=== PATIENT | female | born 1965 | race Two or more races ===

== ENCOUNTER 2019-06-24 00:03 | Emergency (ER) | payer MEDICARE ==
[2019-06-24] MEDS ORDERED: NORMAL SALINE 500 ML IV ONE (00:38)
--- NOTE | 2019-06-24 00:52 | ER Document Report ---
Entered by JOHNY HAMMER SCRIBE 06/24/19 0026 Acting as scribe for:CHAD GALVIN IV, MD ED General - General Chief Complaint: Altered Mental Status Stated Complaint: ALTERED MENTAL STATUS Time Seen by Provider: 06/24/19 00:25 Primary Care Provider: ISA ESTRADA MD [Primary Care Provider] - Follow up as needed Mode of Arrival: Medic Information source: Emergency Med Personnel Notes: This 53 year old female patient brought in by EMS presents to the ED today with complaints of altered mental status that began prior to arrival. ED nurse states that the patient's mom called for EMS because the patient was weak and collapsed with no head injury or loss of consciousness. ED nurse reports that the mom states that the patient took Ambien and Clonazepam at 1999. Patient recently moved here and was prescribed a x3 month supply of Depakote from her PCP to sustain her until she found a new PCP here. Patient has a prescription for x60 1mg Clonazepam that was filled on 06/10/19. Patient only has x8 pills left in the bottle. - Related Data Allergies/Adverse Reactions: No Known Allergies Allergy (Unverified 06/24/19 00:54) Past Medical History - General Information source: Emergency Med Personnel - Social History Smoking Status: Unknown if Ever Smoked Cigarette use (# per day): No Chew tobacco use (# tins/day): No Smoking Education Provided: No Family History: Reviewed & Not Pertinent Review of Systems - Review of Systems Constitutional: See HPI, Weakness EENT: No symptoms reported Cardiovascular: No symptoms reported Respiratory: No symptoms reported Gastrointestinal: No symptoms reported Genitourinary: No symptoms reported Female Genitourinary: No symptoms reported Musculoskeletal: No symptoms reported Skin: No symptoms reported Hematologic/Lymphatic: No symptoms reported Neurological/Psychological: See HPI, Other - Altered mental status. denies: Lost consciousness -: Yes All other systems reviewed and negative Physical Exam - Vital signs Vitals: BP Pulse Ox 117/72 96 06/24/19 00:21 06/24/19 00:21 - General General appearance: Other - Somnolent - HEENT Head: Normocephalic, Atraumatic Eyes: Normal Pupils: PERRL - Respiratory Respiratory status: No respiratory distress Chest status: Nontender Breath sounds: Normal Chest palpation: Normal - Cardiovascular Rhythm: Regular Heart sounds: Normal auscultation Murmur: No - Abdominal Inspection: Normal Distension: No distension Bowel sounds: Normal Tenderness: Nontender - Abdomen soft Organomegaly: No organomegaly - Back Back: Normal, Nontender - Extremities General upper extremity: Normal inspection General lower extremity: Normal inspection - Neurological Neuro grossly intact: Yes - Psychological Associated symptoms: Other - Somnolent - Skin Skin Temperature: Warm Skin Moisture: Dry Skin Color: Normal Course - Vital Signs Vital signs: Temp Pulse Resp BP Pulse Ox 97.4 F 17 119/67 99 06/24/19 00:53 06/24/19 04:01 06/24/19 04:01 06/24/19 04:01 - Laboratory Result Diagrams: 06/24/19 01:15 06/24/19 01:15 Laboratory results interpreted by me: 06/24/19 06/24/19 01:15 01:15 Hgb 11.3 L Hct 33.9 L RDW 16.6 H Eos % (Auto) 10.1 H Calcium 8.3 L Albumin 3.4 L - Diagnostic Test Radiology reviewed: Reports reviewed Discharge - Discharge Clinical Impression: Altered mental status, unspecified Qualifiers: Altered mental status type: unspecified Qualified Code(s): R41.82 - Altered men tiff status, unspecified Condition: Good Disposition: HOME, SELF-CARE Additional Instructions: Return to the Emergency Department without delay if any worse. Altered Mental Status An altered mental status is a change in the normal functioning of the brain. This alteration of function can range from minor decreased brain function with some forgetfulness and confusion to complete loss of consciousness and coma. There are many possible causes of an altered mental status and include brain injuries such as trauma or strokes, problems with oxygen supply to the brain, fever and infections of the brain and/or elsewhere in the body, metabolic abnormalities such as low or high blood sugar, overdoses or excessive medication ingestion, and mental and psychiatric illnesses. Sometimes the altered mental status resolves and a definite cause is not determined. If a cause for your altered mental status was found, it has likely been corrected. Your evaluation has not shown any condition that requires that you be admitted to the hospital. It is believed that you are safe to leave and return to your home. If you have a return of your symptoms, you should return for re-evaluation. HOME CARE INSTRUCTIONS & INFORMATION: Thank you for choosing us for your medical needs. We hope you're satisfied with the care you received. After you leave, you must properly care for your problem and, at the same time, observe its progress. Any condition can change. Some illnesses can change rapidly over hours or days. If your condition worsens, return to the Emergency Department or see your physician promptly. ABOUT YOUR X-RAYS AND EKG'S: If you had an EKG or X-rays taken, they have been read by the Emergency Physician. The X-rays and EKG's will also be read by a Radiologist or Stratigrapher within 24 hours. If discrepancies are noted, you will be notified by telephone. Please be certain the ED has a correct telephone number & address where you can be reached. Also, realize that some fractures or abnormalities do not show up on initial X-rays. If your symptoms continue, see your physician. ABOUT YOUR LABORATORY TEST: If you had laboratory tests, the results have been reviewed by the Emergency Physician. Some test results (for example cultures) may not be available for several days. You will be contacted if any test result shows you need additional treatment. Please be certain the ED has a correct telephone number and address where you can be reached. ABOUT YOUR MEDICATIONS: You will receive instructions on how to take your medicine on the prescription label you receive. Additional information may be provided by the Pharmacy. If you have questions afterwards, call the ED for clarification or further instructions. Some prescribed medications may cause drowsiness. Do not perform tasks such as driving a car or operating machinery without consulting your Pharmacist. If you feel you need a refill of pain medication, your condition will need re-evaluation. Please do not call for a refill of any medication. ABOUT YOUR SIGNATURE: Signature of this document acknowledges to followin. Understanding that you received emergency treatment and that you may be released before al medical problems are known or treated. Please be certain the ED has a correct phone number & address where you can be reached. 2. Acknowledgement that you will arrange for follow-up care as recommended. 3. Authorization for the Emergency Physician to provide information to your follow-up Physician in order to maximize your care. AT ANY TIME, IF YOUR SYMPTOMS CHANGE SIGNIFICANTLY OR WORSEN OR YOU DEVELOP NEW SYMPTOMS, RETURN TO THE EMERGENCY DEPARTMENT IMMEDIATELY FOR RE-EVALUATION. OUR GOAL IS TO PROVIDE EXCELLENT MEDICAL CARE! WE HOPE THAT WE HAVE MET YOUR EXPECTATIONS DURING YOUR EMERGENCY DEPARTMENT VISIT AND THAT YOU FEEL YOU HAVE RECEIVED EXCELLENT CARE! Referrals: ISA ESTRADA MD [Primary Care Provider] - Follow up as needed I personally performed the services described in the documentation, reviewed and edited the documentation which was dictated to the scribe in my presence, and it accurately records my words and actions.
[2019-06-24 01:12] LABS: APPEARANCE,URINE CLEAR; BILIRUBIN,URINE NEGATIVE (NEGATIVE); COLOR,URINE YELLOW; GLUCOSE, URINE NEGATIVE (NEGATIVE); KETONES,URINE NEGATIVE (NEGATIVE); LEUKOCYTE ESTERASE,URINE NEGATIVE (NEGATIVE); NITRITE,URINE NEGATIVE (NEGATIVE); PROTEIN,URINE NEGATIVE (NEGATIVE); URINE SPECIFIC GRAVITY 1.012; UROBILINOGEN,URINE NEGATIVE mg/dL (<2.0)
--- NOTE | 2019-06-24 01:22 | RADIOLOGY REPORT (SQ) ---
EXAM DESCRIPTION: CT HEAD WITHOUT IV CONTRAST COMPLETED DATE/TME: 06/24/2019 00:37 CLINICAL HISTORY: 53 years, Female, ams COMPARISON: None. TECHNIQUE: Images stored on PACS. All CT scanners at this facility use dose modulation, iterative reconstruction, and/or weight based dosing when appropriate to reduce radiation dose to as low as reasonably achievable (ALARA). [facility]: Dose Right [facility]: CareDose [facility]: Dose Right [facility]: Teradose 4D [facility]: [employer] Technologies LIMITATIONS: Asymmetric positioning FINDINGS: Martinez-white differentiation is grossly normal. The ventricles and extracerebral spaces are within normal limits, for age. No evidence of mass lesion, positive mass effect or intracranial hemorrhage. No evidence of an acute large territory infarct. The mastoid air cells are clear. Visualized paranasal sinuses are grossly clear. Orbits and eyeballs are unremarkable. IMPRESSION: No acute intracranial process is identified. The cause of the patient's altered mental status is not identified on this examination. TECHNICAL DOCUMENTATION: Quality ID # [id number]: Final reports with documentation of one or more dose reduction techniques (e.g., Automated exposure control, adjustment of the mA and/or kV according to patient size, use of iterative reconstruction technique) copyright 2011 [employer]- All Rights Reserved
[2019-06-24 01:37] LABS: URINE AMPHETAMINES SCREEN NEGATIVE; URINE BARBITURATES SCREEN NEGATIVE; URINE BENZODIAZEPINES SCREEN NEGATIVE; URINE COCAINE SCREEN NEGATIVE; URINE MARIJUANA (THC) SCREEN NEGATIVE; URINE METHADONE SCREEN NEGATIVE; URINE PHENCYCLIDINE SCREEN NEGATIVE
[2019-06-24 01:51] LABS: ALBUMIN 3.4 g/dL (3.5-5.0); ALKALINE PHOSPHATASE 69 U/L (38-126); ANION GAP 9 (5-19); ASPARTATE AMINO TRANSFERASE 16 U/L (14-36); BILIRUBIN,DIRECT 0.2 mg/dL (0.0-0.4); BILIRUBIN,TOTAL 0.2 mg/dL (0.2-1.3); BLOOD UREA NITROGEN 17 mg/dL (7-20); CALCIUM 8.3 mg/dL (8.4-10.2); CARBON DIOXIDE 25 mmol/L (22-30); CHLORIDE 107 mmol/L (98-107); GLUCOSE 84 mg/dL (75-110); POTASSIUM 4.2 mmol/L (3.6-5.0); TOTAL PROTEIN 6.4 g/dL (6.3-8.2)
[2019-06-24 01:57] LABS: ALCOHOL < 10 mg/dL (NONE DETECTED)
[2019-06-24 02:11] LABS: ABSOLUTE EOSINOPHILS # (AUTO) 0.6 10^3/uL (0.0-0.6); ABSOLUTE LYMPHOCYTES (AUTO) 2.3 10^3/uL (0.5-4.7); ABSOLUTE MONOCYTES (AUTO) 0.5 10^3/uL (0.1-1.4); ABSOLUTE NEUT (AUTO) 2.5 10^3/uL (1.7-8.2); BASOPHILS % (AUTO) 0.4 % (0-2); EOSINOPHILS % (AUTO) 10.1 % (0-6); HEMATOCRIT 33.9 % (36.0-47.0); HEMOGLOBIN 11.3 g/dL (12.0-15.5); LYMPHOCYTES % (AUTO) 38.7 % (13-45); MEAN CORPUSCULAR HEMOGLOBIN 29.4 pg (27.0-33.4); MEAN CORPUSCULAR HGB CONC 33.5 g/dL (32.0-36.0); MEAN CORPUSCULAR VOLUME 88 fl (80-97); MONOCYTES % (AUTO) 7.9 % (3-13); PLATELET COUNT 170 10^3/uL (150-450); RED BLOOD COUNT 3.85 10^6/uL (3.72-5.28); RED CELL DISTRIBUTION WIDTH 16.6 % (11.5-14.0); SEGMENTED NEUTROPHILS % (AUTO) 42.9 % (42-78); TOTAL CELLS COUNTED % (AUTO) 100 %; WHITE BLOOD COUNT 5.8 10^3/uL (4.0-10.5)
[2019-06-24 06:14] VITALS: BP 129/67
--- NOTE | 2019-06-24 08:39 | EKG REPORT ---
SEVERITY:- ABNORMAL ECG - SINUS RHYTHM NONSPECIFIC T ABNORMALITIES, ANTERIOR LEADS BORDERLINE PROLONGED QT INTERVAL : Confirmed by: Tiffany Cooper 24-Jun-2019 08:38:14
== END 2019-06-24 06:14 | disposition home or self-care (01) ==
LOC: ER 00:03
DX: R40.0 Somnolence (principal); R53.1 Weakness
CPT/HCPCS: 93005; 99285; 96360; 36415; 80307 ×2; 85025; 80053; 81001; 80164; 70450; 93010; J7040

== ENCOUNTER 2019-08-25 11:30 | Emergency (ER) | payer MEDICARE, MEDICAID ==
--- NOTE | 2019-08-25 11:54 | ER Document Report ---
HPI - HPI Time Seen by Provider: 08/25/19 11:33 Onset: Last week Onset/Duration: Gradual Quality of pain: Achy Severity: Mild Pain Level: 1 Context: 53-year-old female presented to ED for gross subjective fever with chills body aches sore throat cough shortness of breath nausea headache and abdominal pain. She also has diarrhea and fatigue. She does have a history of asthma chronic fatigue syndrome fibromyalgia and GI issues. She also has multiple psych issues. She is here today for coronavirus testing. The patient was evaluated during the global Covid 19 pandemic, and that diagnosis was suspected/considered upon their initial presentation. Their evaluation, treatment and testing was consistent with current guidelines for patients who present with complaints or symptoms that may be related to Covid 19. Associated Symptoms: Chills - Subjective, Nonproductive cough, Fever, Headache, Nausea - CONSTITUTIONAL Constitutional: REPORTS: Fever, Chills - EENT EENT: REPORTS: Sore Throat - NEURO Neurology: REPORTS: Headache - RESPIRATORY Respiratory: REPORTS: Coughing - GASTROINTESTINAL Gastrointestinal: REPORTS: Abdominal Pain, Nausea - URINARY Urinary: DENIES: Dysuria, Urgency, Frequency - REPRODUCTIVE Reproductive: DENIES: :, Postmenopausal, Abnormal bleeding / discharge - MUSCULOSKELETAL Notes: Body aches - DERM Skin Color: Normal Skin Problems: None Past Medical History - General Information source: Patient - Social History Smoking Status: Never Smoker Family History: Reviewed & Not Pertinent - Past Medical History Cardiac Medical History: Reports: None Pulmonary Medical History: Reports: Hx Asthma EENT Medical History: Reports: None Neurological Medical History: Reports: None Endocrine Medical History: Reports: None Renal/ Medical History: Reports: None Malignancy Medical History: Reports: None GI Medical History: Reports: Other - GI issues Musculoskeletal Medical History: Reports Hx Fibromyalgia, Reports Other - Chronic fatigue syndrome Psychiatric Medical History: Reports: Hx Anxiety, Hx Bipolar Disorder, Hx Borderline Personality Disorder, Hx Depression Traumatic Medical History: Reports: None Infectious Medical History: Reports: None Vertical Provider Document - CONSTITUTIONAL Notes: PHYSICAL EXAMINATION: GENERAL: Well-appearing, well-nourished and in no acute distress. HEAD: Atraumatic, normocephalic. EYES: Pupils equal round extraocular movements intact, conjunctiva are normal. ENT: Nasal drainage with postnasal drip no redness or enlargement tonsils no exudate NECK: Normal range of motion LUNGS: No respiratory distress Musculoskeletal: Normal range of motion NEUROLOGICAL: Normal speech, normal gait. PSYCH: Normal mood, normal affect. SKIN: Warm, Dry, normal turgor, no rashes or lesions noted. Course - Re-evaluation Re-evalutation: 08/25/19 12:26 Patient presents with upper respiratory symptoms worrisome for possible Covid 19. Patient does not have emergency worring symptoms such as difficulty breathing, shortness of breath, chest pain, pressure, confusion or cyanosis. Patient appears suitable for discharge. Good return precautions have been discussed with patient, patient verbalized understanding and is agreeable with discharge plan of care at this time. 08/25/19 12:54 Patient notified of Negative results for Rapid Flu (A & B) and Rapid Strep. Patient also advised of PENDING results for Throat Culture and COVID- 19. Discharge - Discharge Clinical Impression: Viral respiratory illness, Covid 19 screening Condition: Stable Disposition: HOME, SELF-CARE Additional Instructions: Patient was provided with discharge information including: As a person under investigation for Covid 19, the [place] department of Health and Human Services, division of public health advises you to adhere to the following guidance until your test results are reported to you. If your test result is positive, you will receive additional information from your provider and your local health department at that time. Remain at home until you are cleared by the health provider or public health authorities. Keep a log of visitors to your home, notify any visitors to your home of your isolation status. If you plan to move to a new address or leave the [facility], notify the local health department in your County. Call your doctor or seek care if you have an urgent medical need. Before seeking medical care, call ahead to get instructions from the provider before arriving at the medical office clinic or hospital. Notify them that you are being tested for the virus that causes Covid 19 so that arrangements can be made, as necessary, to prevent transmission to others in the healthcare setting. Next, notify the local health department in your county. If a medical emergency arises and you need to call 911, inform the first responders that you are being tested for the virus that causes Covid 19. Next, notify the local health department in your county. Referrals: ISA ESTRADA MD [Primary Care Provider] - Follow up as needed
[2019-08-25 12:36] VITALS: BP 118/63
[2019-08-25 12:50] LABS: A TYPE INFLUENZA AG NEGATIVE (NEGATIVE); B INFLUENZA AG NEGATIVE (NEGATIVE)
== END 2019-08-25 13:22 | disposition home or self-care (01) ==
LOC: EDRDC 11:30
DX: Z20.828 Contact with and (suspected) exposure to other viral communicable diseases (principal); B34.9 Viral infection, unspecified; R68.89 Other general symptoms and signs; R50.9 Fever, unspecified; R05 Cough; R06.02 Shortness of breath; R11.0 Nausea
CPT/HCPCS: 87070; 87880; 87804; U0003; G0463; 87635; 99211

== ENCOUNTER 2019-09-22 10:30 | Emergency (ER) | payer MEDICARE, MEDICAID ==
[2019-09-22 10:43] VITALS: BP 135/55
[2019-09-22] MEDS ORDERED: LIDOCAINE 1% INJ-PF (10 MG/ML) 30 ML SDV INJ ONE (10:52)
--- NOTE | 2019-09-22 10:58 | ER Document Report ---
ED Hand/Wrist Injury - General Chief Complaint: Laceration Stated Complaint: FINGER LACERATION Time Seen by Provider: 09/22/19 10:51 Primary Care Provider: ISA ESTRADA MD [NO LOCAL MD] - Follow up as needed Mode of Arrival: Ambulatory Information source: Patient Notes: 53-year-old female presented to ED for call complaint of a laceration to the left middle finger. It is about three-quarter centimeter long. She states she was cutting salami last night about 930 when she cut her finger. She states she could not get it to stop bleeding so she came to the emergency room because no one else would see her. She is alert oriented respirations regular nonlabored speaking in full sentences. She states she does need a tetanus shot because she does not know when her last shot was. - HPI Injury to: Middle finger Onset: Yesterday Where: Home, Indoors Timing: Still present Quality of pain: Sharp - Related Data Allergies/Adverse Reactions: No Known Allergies Allergy (Verified 09/22/19 10:49) Past Medical History - General Information source: Patient - Social History Smoking Status: Never Smoker Chew tobacco use (# tins/day): No Frequency of alcohol use: None Drug Abuse: None Family History: Reviewed & Not Pertinent Patient has homicidal ideation: No Pulmonary Medical History: Reports: Hx Asthma GI Medical History: Reports: Hx Gastritis, Hx Gastroesophageal Reflux Disease, Hx Ulcer, Hx Endoscopy Musculoskeletal Medical History: Reports Hx Fibromyalgia Psychiatric Medical History: Reports: Hx Anxiety, Hx Bipolar Disorder, Hx Borderline Personality Disorder, Hx Depression Traumatic Medical History: Reports: Hx Fractures - Multiple Past Surgical History: Reports: Hx Appendectomy, Hx Section, Hx Cholecystectomy, Hx Dilation and Curettage, Hx Gastric Bypass Surgery, Hx Hyst erectomy, Hx Tonsillectomy - Immunizations Immunizations up to date: Yes Hx Diphtheria, Pertussis, Tetanus Vaccination: Yes - 09/22/2019 Review of Systems - Review of Systems Constitutional: No symptoms reported EENT: No symptoms reported Cardiovascular: No symptoms reported Respiratory: No symptoms reported Gastrointestinal: No symptoms reported Genitourinary: No symptoms reported Female Genitourinary: No symptoms reported Musculoskeletal: No symptoms reported Skin: Other - Laceration three-quarter centimeter to the middle finger near the nail Hematologic/Lymphatic: No symptoms reported Neurological/Psychological: No symptoms reported Physical Exam - Vital signs Vitals: Temp Pulse Resp BP Pulse Ox 98.7 F 78 18 135/55 H 96 09/22/19 10:36 09/22/19 10:36 09/22/19 10:36 09/22/19 10:36 09/22/19 10:36 Interpretation: Hypertensive - General General appearance: Appears well, Alert In distress: None - Extremities General upper extremity: Normal color, Normal ROM, Normal temperature General lower extremity: Normal inspection, Nontender, Normal color, Normal ROM, Normal temperature, Normal weight bearing. No: George's sign Hand: Tender, Laceration - Three-quarter centimeter laceration close to the nail of the middle finger on the left hand, Swelling - Skin Skin Temperature: Warm Skin Moisture: Dry Skin Color: Normal Skin irregularity: Laceration Location of irregularity: Extremities - Left middle finger three-quarter inches long Course - Vital Signs Vital signs: Temp Pulse Resp BP Pulse Ox 98.7 F 78 18 135/55 H 96 09/22/19 11:45 09/22/19 11:45 09/22/19 11:45 09/22/19 11:45 09/22/19 11:45 Procedures - Laceration/Wound Repair Left Finger 3rd digit Time completed: 11:30 Wound length (cm): 0.7 Wound's Depth, Shape: Superficial, Linear Laceration pre-procedure: Sterile PPE donned, Sterile drapes applied, Shur-Clens applied Anesthetic type: 1% Lidocaine Volume Anesthetic (mLs): 5 Wound explored: Contaminated Irrigated w/ Saline (mLs): 300 Wound Repaired With: Sutures Suture Size/Type: 4:0, Ethilon Number of Sutures: 3 Discharge - Discharge Clinical Impression: Laceration of left middle finger Qualifiers: Encounter type: initial encounter Damage to nail status: without damage Foreign body presence: without foreign body Qualified Code(s): S61.213A - Laceration without foreign body of left middle finger without damage to nail, initial encounter Condition: Stable Disposition: HOME, SELF-CARE Additional Instructions: LACERATION CARE: Your laceration has been sutured to keep the skin edges aligned during healing. The time of suture removal depends on the nature and location of your cut. Please follow the care instructions the doctor has outlined for you and return for further care, according to the schedule you've been given. Keep the wound and dressing clean. Unless you were told otherwise, you may shower daily, blotting the wound dry with a clean, unused towel. At other times, If the dressing gets wet or blood soaked, remove it and blot the wound dry, then reapply a new dressing. Unless you were instructed otherwise, dressings should be changed at least daily. If any signs of infection occur (swelling, redness, drainage, increasing tenderness, red streaks, tender lumps in the armpit or groin above the laceration, or fever), see the doctor immediately. SOAP CLEANSING: Gently wash the wound daily using a mild soap (like Ivory, Phisoderm, Neutrogena). Use warm water, rubbing gently until all debris, ooze, and crusting have been washed from the wound. Allow to dry briefly (about 10 minutes) after cleaning. Repeat this cleansing at least three times a day for the first two days and then once or twice a day. ANTIBIOTIC OINTMENT PROTECTION: Your wounds are such that dressing them is not practical or optional. After cleansing, you should apply a thin coating of antibiotic ointment (Bacitracin, not Neosporin) to the wounds at least three times daily. This les sens infection risk, and may decrease the amount of scarring. Use a q-tip or dull butter knife, not your finger, to apply this ointment. Any debris or ooze which builds up in the ointment should be gently rubbed off with a sterile gauze pad. Harder crusting may need to be gently scrubbed off with a clean wash cloth with soap and warm water, perhaps applying a warm, wet wash cloth to the wound for ten minutes first. Development of redness, severe itching, or blistering may mean allergy to the ointment. See the doctor. TETANUS IMMUNIZATION GIVEN: You have been given an immunization against tetanus. Please record this in your records. In general, a booster is needed only once every 10 years. The tetanus shot protects against tetanus or "lockjaw," which is a complication of certain wound infections (the tetanus shot cannot protect against the actual infection). The immunization site may become warm and red due to local reaction. If this occurs, apply warm compresses and take aspirin or ibuprofen to reduce inflammation and discomfort. Return for evaluation if the reaction becomes severe. PROPHYLACTIC ANTIBIOTIC: The antibiotics which have been prescribed are designed to decrease the risk of infection. Only certain types of wounds benefit from this -- the typical cut, scrape, or burn DOES NOT require antibiotics. Of course, infection can still occur despite the use of prophylactic antibiotics. Your wound will heal with less chance of an infectious complication if you take the medication as directed. The most important dose is the FIRST dose, so don't delay filling the prescription! Splint Precautions A splint has been placed. This will protect the area while healing begins. Your problem does NOT normally require a cast. It MUST, however, be held still! Keep the splint on ALL THE TIME until instructed to remove it by the doctor. As you begin to use the area, be careful. You shouldn't do anything which causes discomfort -- you may disturb the injury even with the splint in place. After the initial period of rest and elevation, if splint does not prevent pain when you move, come back. You may require placement of a different splint, or a cast. If there is unexpected severe pain, or numbness, discoloration, or swelling beyond the splint, you should return at once. If you feel that the splint has broken or become loose, come back. FOLLOW-UP CARE: Please return in __3___ days for an infection check and dressing change. Your sutures should be removed in ___10__ days. To facilitate a timely removal of your sutures, you may return to the Emergency Department at [facility]. You do not need to call for an appointment, but the best time to come in for suture removal is early in the morning. If you have been referred to another physician for follow-up care, call that physicians office for an appointment as you were instructed. If you experience a significant change in your laceration, or if you are concerned there may be an infection (swelling, redness, drainage, increasing tenderness, red streaks, tender lumps in the armpit or groin above the laceration, or fever), return to the Emergency Department immediately re-evaluation. Prescriptions: Cephalexin Monohydrate [Keflex 500 mg Capsule] 500 mg PO Q6H 5 Days #20 capsule Forms: Elevated Blood Pressure Referrals: ISA ESTRADA MD [NO LOCAL MD] - Follow up as needed
[2019-09-22] MEDS ORDERED: DIPH/PERTUSS(ACELL)/TETANUS VAC/PF 0.5 ML SYR (>=10YO) IM ONE (11:30)
== END 2019-09-22 11:45 | disposition home or self-care (01) ==
LOC: ER 10:30
DX: S61.213A Laceration without foreign body of left middle finger without damage to nail, initial encounter (principal); W45.8XXA Other foreign body or object entering through skin, initial encounter; Y93.G9 Activity, other involving cooking and grilling; Y92.009 Unspecified place in unspecified non-institutional (private) residence as the place of occurrence of the external cause; Z23 Encounter for immunization; J45.909 Unspecified asthma, uncomplicated; Z98.84 Bariatric surgery status
CPT/HCPCS: 99282; 90471; 90715; 12001; J3490

== ENCOUNTER 2019-09-26 18:17 | Emergency (ER) | payer MEDICARE, MEDICAID ==
[2019-09-26 18:22] VITALS: BP 136/80
[2019-09-26] MEDS ORDERED: ACETAMINOPHEN 325 MG TABLET PO ONE (18:45)
--- NOTE | 2019-09-26 18:50 | ER Document Report ---
ED Medical Screen (RME) - General Chief Complaint: Fall Injury Stated Complaint: FALL/RIGHT ARM PAIN, KNEE PAIN Time Seen by Provider: 09/26/19 18:32 Primary Care Provider: ANOOP ESTRADA MD [Primary Care Provider] - Follow up as needed - [facility] Notes: 09/26/19 18:46 53-year-old female presents emergency room for complaints right upper and lower arm pain after falling accidentally approximately 12 hours ago after she tripped over her feet. Denies head trauma or change in level consciousness. Witnessed event. Patient reports weakness in her arm, severe pain unable to move arm. Has not tried any [id number] medications, no ice or heat. Patient states pain is 9 out of 10, does not want any controlled substances because she states she has drive herself home. Denies any other area of injury. Denies pain in her shoulder states her pain is from her upper arm down. Worse with movement, better with immobilization. Denies prior history of fracturing anything in her right arm. Denies any fevers, chills I have greeted and performed a rapid initial assessment of this patient. A comprehensive ED assessment and evaluation of the patient, analysis of test results and completion of the medical decision making process will be conducted by additional ED providers. PHYSICAL EXAMINATION: GENERAL: Well-appearing, well-nourished and in no acute distress. CV: s1, s2 regular LUNGS: No respiratory distress Musculoskeletal: Normal range of motion. Right elbow with pain with palpation unable to supinate, pronate, extension. only able to keep in flexed position. Swelling of right elbow and right forearm with some ecchymosis. Positive snuffbox sign on right. Pain with palpation to distal humerus. Noted swelling of fingers. - Related Data Allergies/Adverse Reactions: No Known Allergies Allergy (Verified 09/22/19 10:49) Past Medical History - Social History Frequency of alcohol use: None Drug Abuse: None Pulmonary Medical History: Reports: Hx Asthma GI Medical History: Reports: Hx Gastritis, Hx Gastroesophageal Reflux Disease, Hx Ulcer, Hx Endoscopy Musculoskeltal Medical History: Reports Hx Fibromyalgia Psychiatric Medical History: Reports: Hx Anxiety, Hx Bipolar Disorder, Hx Borderline Personality Disorder, Hx Depression Traumatic Medical History: Reports: Hx Fractures - Multiple Past Surgical History: Reports: Hx Appendectomy, Hx Section, Hx Cholecystectomy, Hx Dilation and Curettage, Hx Gastric Bypass Surgery, Hx Hysterectomy, Hx Tonsillectomy - Immunizations Immunizations up to date: Yes Hx Diphtheria, Pertussis, Tetanus Vaccination: Yes - 09/22/2019 Physical Exam - Vital signs Vitals: Temp Pulse Resp BP Pulse Ox 98.9 F 93 16 136/80 H 96 09/26/19 18:21 09/26/19 18:21 09/26/19 18:21 09/26/19 18:21 09/26/19 18:21 Course - Vital Signs Vital signs: Temp Pulse Resp BP Pulse Ox 98.9 F 93 16 136/80 H 96 09/26/19 18:29 09/26/19 18:21 09/26/19 18:21 09/26/19 18:21 09/26/19 18:21 Doctor's Discharge - Discharge Referrals: ANOOP ESTRADA MD [Primary Care Provider] - Follow up as needed
--- NOTE | 2019-09-26 20:02 | RADIOLOGY REPORT (SQ) ---
CLINICAL INDICATION: s/p fall right arm pain. . TECHNIQUE: 2 view(s) were obtained of the right forearm. COMPARISON: None. FINDINGS: Acute radial head fracture, incompletely seen. Alignment appears anatomic. Elbow effusion. Osteoarthritis. Deformity from old injury distal radius.. If wrist or elbow are clinically in suspicion, then dedicated radiography is advised. IMPRESSION: Impacted radial head fracture. Dedicated elbow imaging is advised.
--- NOTE | 2019-09-26 20:02 | RADIOLOGY REPORT (SQ) ---
CLINICAL INDICATION: s/p fall, R arm pain. . TECHNIQUE: 4 view(s) were obtained of the right elbow. COMPARISON: None. FINDINGS: Acute impacted radial head fracture. There appears be disruption of the articular surface seen on one view only.. No other acute bony injury. Osteoarthritis. Large joint effusion. Surrounding soft tissues are unremarkable. IMPRESSION: Impacted radial head fracture.
--- NOTE | 2019-09-26 20:03 | RADIOLOGY REPORT (SQ) ---
CLINICAL INDICATION: s/p fall, right wrist pain . . TECHNIQUE: 2 view(s) were obtained of the right wrist. COMPARISON: None. FINDINGS: No acute displaced fracture is identified of the wrist. Alignment appears anatomic. Osteoarthritis. Deformity from old injury.. Surrounding soft tissues are unremarkable. IMPRESSION: No evidence of acute displaced fracture of the wrist.
--- NOTE | 2019-09-26 20:03 | RADIOLOGY REPORT (SQ) ---
CLINICAL INDICATION: s/p fall, R arm pain. . TECHNIQUE: 2 view(s) were obtained of the right humerus. COMPARISON: None. FINDINGS: No acute displaced fracture is identified of the humerus. Alignment appears anatomic. Joint spaces are within normal limits for age. Surrounding soft tissues are unremarkable. If shoulder or elbow are clinically in suspicion, then dedicated radiography is advised. IMPRESSION: No evidence of acute displaced fracture of the humerus. Please see report of elbow
[2019-09-26] MEDS ORDERED: HYDROCODONE/ACETAMINOPHEN 5-325 MG (6 TAB/ER DISP) PO PRN (20:10)
--- NOTE | 2019-09-26 20:24 | ER Document Report ---
HPI - HPI Time Seen by Provider: 09/26/19 18:32 Pain Level: 5 Notes: tripped over her feet. Denies head trauma or change in level consciousness. Witnessed event. Patient reports weakness in her arm, severe pain unable to move arm. Has not tried any aylr-shr-[id number] medications, no ice or heat. Patient states pain is 9 out of 10, does not want any controlled substances because she states she has drive herself home. Denies any other area of injury. Denies pain in her shoulder states her pain is from her upper arm down. Worse with movement, better with immobilization. Denies prior history of fracturing anything in her right arm. Denies fevers, chills, chest pain,palpitations, shortness of breath, dyspnea, nausea, vomiting, diarrhea, abdominal pain, hematuria,blurred vision, double vision, loss of vision, speech changes, LH, dizziness, syncope, headaches, wheezing, ST, URI, neck pain, weakness, bowel or bladder dysfunction, saddle anesthesia, numbness or tingling in bilateral upper or lower extremities equally, muscle paralysis, weakness in bilateral upper or lower extremities equally or rash. - REPRODUCTIVE Reproductive: DENIES: : Past Medical History - General Information source: Patient - Social History Smoking Status: Never Smoker Frequency of alcohol use: None Drug Abuse: None Family History: Reviewed & Not Pertinent Patient has homicidal ideation: No Pulmonary Medical History: Reports: Hx Asthma GI Medical History: Reports: Hx Gastritis, Hx Gastroesophageal Reflux Disease, Hx Ulcer, Hx Endoscopy Musculoskeletal Medical History: Reports Hx Fibromyalgia Psychiatric Medical History: Reports: Hx Anxiety, Hx Bipolar Disorder, Hx Borderline Personality Disorder, Hx Depression Traumatic Medical History: Reports: Hx Fractures - Multiple Past Surgical History: Reports: Hx Appendectomy, Hx Section, Hx Cholecystectomy, Hx Dilation and Curettage, Hx Gastric Bypass Surgery, Hx Hysterectomy, Hx Tonsillectomy - Immunizations Immunizations up to date: Yes Hx Diphtheria, Pertussis, Tetanus Vaccination: Yes - 09/22/2019 Vertical Provider Document - CONSTITUTIONAL Agree With Documented VS: Yes Exam Limitations: No Limitations General Appearance: WD/WN Notes: PHYSICAL EXAMINATION: reviewed vital signs by RN GENERAL: Well-appearing, well-nourished and in no acute distress. HEAD: Atraumatic, normocephalic. EYES: Pupils equal round and reactive to light, extraocular movements intact, conjunctiva are normal. ENT: Nares patent, oropharynx clear without exudates. Moist mucous membranes. NECK: Normal range of motion, supple without lymphadenopathy LUNGS: Breath sounds clear to auscultation bilaterally and equal. No wheezes rales or rhonchi. HEART: Regular rate and rhythm without murmurs ABDOMEN: Soft, nontender, nondistended abdomen. No guarding, no rebound. No masses appreciated. Female : deferred Musculoskeletal: Normal range of motion, no pitting or edema. No cyanosis. right elbow with pain with abduction, adduction, extension and flexion. unable to supinate or pronate. Staff Nuclear Weapons Officer + 2 L>R APROM in shoulder. DTR +2 in BUE equally. Noted crepitus with APROM in elbow. Noted noted swelling. No abrasions, ecchymosis, lacerations, scars of recent trauma. No erythema or induration noted to area. Intact median, ulnar and radial nerves bilaterally and equally. muscle strength 5/5 bilaterally. Noted right wrist pain with flexion, extension, inversion, eversion of wrist. digits in right and left with full aprom.. Staff Nuclear Weapons Officer + 2 BUE equally. Snuffbox tenderness positive on right. radial pulses + 2 BUE equally. Negative kanavels sign. No open wounds or drainage from wrist. No vascular compromise.No body crepitus or focal area of TTP. Limited ROM with flexion, extension, ulnar/radial deviation . Motor and sensory function of ulnar, radial, medial nerves intact bilaterally and equally. NEUROLOGICAL: Cranial nerves grossly intact. Normal speech, normal gait. Normal sensory, motor exams PSYCH: Normal mood, normal affect. SKIN: Warm, Dry, normal turgor, no rashes or lesions noted. Course - Re-evaluation Re-evalutation: 09/26/19 20:13 Afebrile vital stable no distress. Nurses notes reviewed. X-ray shows an impacted radial head fracture of the elbow all other images are negative. No focal neurological musculoskeletal deficit noted on examination. contacted Dr. Devaughn Zendejas, weatherization specialist insulation board coater operator at 2014, who recommended a direct posterior elbow splint with the elbow being at 90 degrees and he will see her in the office tomorrow morning. Consent by patient given to place long posterior arm splint with elbow at 90 degree splint,. cms intact, sensory motor function intact in bilateral upper extremities prior to splint application fiberglass splint placed without incident. cms intact 20 minutes after splint application. Splint is in good alignment. Bilateral upper extremities with motor and sensory function intact 20 minutes after application. Pt stated that splint felt comfortable. Discussed with patient that she cannot drive, drink or operate machinery while taking narcotics and cause sedation or impairment of cognitive function. Discussed compartment syndrome at length. After performing a Medical Screening Examination, I estimate there is LOW risk for OPEN FRACTURE, COMPARTMENT SYNDROME, DEEP VENOUS THROMBOSIS, ACUTE TENDON RUPTURE, or NEUROVASCULAR INJURY thus I consider the discharge disposition reasonable. I have reevaluated this patient multiple times and no significant life threatening changes are noted. The patient and I have discussed the diagnosis and risks, and we agree with discharging home to closely follow-up with their primary doctor or the referral orthopedist with the understanding that symptoms and presentations can change. We also discussed returning to the Emergency Department immediately if new or worsening symptoms occur. We have discussed the symptoms which are most concerning (e.g., changing or worsening pain, numbness, weakness) that necessitate immediate return 09/26/19 20:24 - Vital Signs Vital signs: Temp Pulse Resp BP Pulse Ox 98.9 F 93 16 136/80 H 96 09/26/19 18:29 09/26/19 18:21 09/26/19 18:21 09/26/19 18:21 09/26/19 18:21 Discharge - Discharge Clinical Impression: Impacted radial head fracture Condition: Stable Disposition: HOME, SELF-CARE Instructions: Splint Pending Casting ([facility]), Splint Precautions ([facility]), Temporary Splint ([facility]), Compartment Syndrome Cautions ([facility]), Oral Narcotic Medication ([facility]), Sling to be Used ([facility]), Temporary Sling ([facility]) Additional Instructions: Please do not get your splint wet. We discussed at length compartment syndrome. Fully please follow-up with Dr. Zendejas first thing in the morning by calling his office to make an appointment for tomorrow. Please do not drive, drink or operate machinery while taking narcotics and cause sedation or impairment of cognitive function. Use your sling to take the weight of the splint off of your neck. If pain becomes severe, numbness or tingling of your hand, discoloration of your fingers, unable to move your fingers etc. please return to the emergency room immediately. Return immediately for any new or worsening symptoms. Follow up with primary care provider, call tomorrow to make followup appointment. Referrals: ANOOP ESTRADA MD [Primary Care Provider] - Follow up as needed ZACKARY ZENDEJAS JR, [ACTIVE PROVISIONAL STAFF] - Follow up tomorrow (call first thing in the morning to make an appointment )
== END 2019-09-26 21:26 | disposition home or self-care (01) ==
LOC: ER 18:17
DX: S52.121A Displaced fracture of head of right radius, initial encounter for closed fracture (principal); M25.521 Pain in right elbow; W01.0XXA Fall on same level from slipping, tripping and stumbling without subsequent striking against object, initial encounter; J45.909 Unspecified asthma, uncomplicated; Z98.84 Bariatric surgery status
CPT/HCPCS: 99283; 73080; 73090; 73060; 73100; 29105; A9270 ×2

== ENCOUNTER 2019-09-27 16:48 | Emergency (ER) | payer MEDICARE, MEDICAID ==
[2019-09-27 16:55] VITALS: BP 113/74
--- NOTE | 2019-09-27 17:10 | ER Document Report ---
ED Medical Screen (RME) - General Stated Complaint: ARM PAIN Time Seen by Provider: 09/27/19 17:01 Primary Care Provider: ANOOP ESTRADA MD [Primary Care Provider] - Follow up as needed Mode of Arrival: Ambulatory Information source: Patient Notes: Patient returns today with history of impacted radial head yesterday. She was treated with a splint and [place]. She was to follow-up with Dr. Laurent today. She reports she called the office and they did not accept her insurance. She tried to call her primary care provider without success. She is here because she is hurting. I contacted Dr. Laurent and he is going to come see her in the emergency department. Charge nurse notified. I have greeted and performed a rapid initial assessment of this patient. A comprehensive ED assessment and evaluation of the patient, analysis of test results and completion of the medical decision making process will be conducted by additional ED providers. - Related Data Allergies/Adverse Reactions: No Known Allergies Allergy (Verified 09/22/19 10:49) Past Medical History Pulmonary Medical History: Reports: Hx Asthma GI Medical History: Reports: Hx Gastritis, Hx Gastroesophageal Reflux Disease, Hx Ulcer, Hx Endoscopy Musculoskeltal Medical History: Reports Hx Fibromyalgia Psychiatric Medical History: Reports: Hx Anxiety, Hx Bipolar Disorder, Hx Borderline Personality Disorder, Hx Depression Traumatic Medical History: Reports: Hx Fractures - Multiple Past Surgical History: Reports: Hx Appendectomy, Hx Section, Hx Cholecystectomy, Hx Dilation and Curettage, Hx Gastric Bypass Surgery, Hx Hysterectomy, Hx Tonsillectomy - Immunizations Immunizations up to date: Yes Hx Diphtheria, Pertussis, Tetanus Vaccination: Yes - 09/22/2019 Physical Exam - Vital signs Vitals: Temp Pulse Resp BP Pulse Ox 98.6 F 86 14 113/74 99 09/27/19 16:53 09/27/19 16:53 09/27/19 16:53 09/27/19 16:53 09/27/19 16:53 Course - Vital Signs Vital signs: Temp Pulse Resp BP Pulse Ox 98.6 F 86 14 113/74 99 09/27/19 16:53 09/27/19 16:53 09/27/19 16:53 09/27/19 16:53 09/27/19 16:53 Doctor's Discharge - Discharge Referrals: ANOOP ESTRADA MD [Primary Care Provider] - Follow up as needed
--- NOTE | 2019-09-27 22:16 | PDOC CONSULTATION ---
Consultation Consult Date: 09/27/19 Provider Consulted: ZACKARY ZENDEJAS JR History of Present Illness Admission Date/PCP: ISA ESTRADA MD History of Present Illness: ROULA WALTON is a 53 year old female who presents today with right upper extremity pain after a recent fall. She presented last night and was encouraged to follow in my clinic today but I was called and notified that she had presented to the emergency department again for follow up. She reports right upper extremity pain from the shoulder to the hand from a recent fall. She has recognized in the interval that she also has a scrape on her left knee, and pain in her neck as well, mild and not her major concern in relation to her right upper extremity. She denies any loss of consciousness or head trauma. Pain is described as 9/10, aching. Worse with motion and improved with rest. Somewhat improved from her time in the splint since her visit yesterday. Past Medical History Pulmonary Medical History: Reports: Asthma GI Medical History: Reports: Gastroesophageal Reflux Disease Musculoskeltal Medical History: Reports: Fibromyalgia Psychiatric Medical History: Reports: Bipolar Disorder, Depression Past Surgical History Past Surgical History: Reports: Appendectomy, Section, Cholecystectomy, Gastric Bypass Surgery, Hysterectomy, Tonsillectomy Social History Smoking Status: Never Smoker Family History Family History: Reviewed & Not Pertinent Parental Family History Reviewed: No Children Family History Reviewed: NA Sibling(s) Family History Reviewed.: NA Medication/Allergy Home Medications: Cephalexin Monohydrate [Keflex 500 mg Capsule] 500 mg PO Q6H 5 Days #20 capsule 09/22/19 Oxycodone HCl/Acetaminophen [Percocet 5-325 mg Tablet] 1 tab PO BIDP PRN #10 tablet 09/27/19 Allergies/Adverse Reactions: No Known Allergies Allergy (Verified 09/22/19 10:49) Review of Systems Review of Systems: Constitutional: ABSENT: anorexia, chills, night sweats Cardiovascular: ABSENT: chest pain Respiratory: ABSENT: dyspnea Gastrointestinal: ABSENT: vomiting Genitourinary: ABSENT: dysuria Integumentary: ABSENT: rash Neurological: ABSENT: confusion, memory loss, numbness Psychiatric: ABSENT: hallucinations Hematologic/Lymphatic: ABSENT: easy bleeding Physical Exam Vital Signs: Temp Pulse Resp BP Pulse Ox 98.6 F 86 14 113/74 99 09/27/19 17:00 09/27/19 16:53 09/27/19 16:53 09/27/19 16:53 09/27/19 16:53 Intake & Output 09/26/19 09/27/19 09/28/19 06:59 06:59 06:59 Weight 84.3 kg Physical Exam: General appearance: PRESENT: no acute distress, cooperative, well-nourished Head exam: PRESENT: atraumatic, normocephalic Eye exam: PRESENT: EOMI Ear exam: PRESENT: normal external ear exam Mouth exam: PRESENT: neck supple Neck exam: ABSENT: tracheal deviation Respiratory exam: PRESENT: symmetrical, unlabored. ABSENT: accessory muscle use, wheezes Pulses: PRESENT: normal radial pulses, normal dorsalis pedis pulse Vascular exam: PRESENT: normal capillary refill GI/Abdominal exam: ABSENT: distended, firm Musculoskeletal exam: PRESENT: full ROM, normal inspection of all 4 extremities aside from that noted below. Neurological exam: PRESENT: alert, awake, oriented to person, oriented to place, oriented to time Psychiatric exam: PRESENT: appropriate affect. ABSENT: agitated Focused psych exam: ABSENT: catatonic Skin exam: PRESENT: intact. ABSENT: dry All as above aside from that noted in the HPI and the following: Right upper extremity Elbow without overt swelling or skin injury, no ecchymosis Limited ROM due to pain Pain with ROM of supination and pronation Sensation and motor function grossly intact to RUE Pulses 2+ The patients tenderness is out of proportion, patient has anticipatory pain prior to palpation. Right shoulder normal ROM, no pain to ROM, no TTP Mild TTP to cervical spine, ROM full without pain. Assessment & Plan - Diagnosis (1) Radial head fracture Plan: Non-displaced compression fracture of the radial neck. The patient was taken out of her splint. She may continue sling use per comfort. ROM as tolerated Non-weight bearing RUE Follow in my office in 3 weeks and will consider progression of activity and weight bearing at that time. Pain medication per ED Patient may call earlier and present to my office with any acute changes or concerns
--- NOTE | 2019-09-28 00:45 | ER Document Report ---
Entered by THERESE KUMAR SCRIBE 09/27/19 1747 Acting as scribe for:CHLOE LYLES DO ED Extremity Problem, Upper - General Chief Complaint: Arm Pain Stated Complaint: ARM PAIN Time Seen by Provider: 09/27/19 17:01 Primary Care Provider: ANOOP ESTRADA MD [ACTIVE STAFF] - Follow up as needed ZACKARY LAURENT JR, DO [ACTIVE PROVISIONAL STAFF] - 10/16/19 Mode of Arrival: Ambulatory Information source: Patient Notes: This 53 year old female patient presents to the emergency department today with complaints of continued right upper extremity pain resulting from a fall yesterday. Patient was seen here and evaluated in this emergency department last night and was found to have an impacted radial head fracture and was given ortho followup. Patient was told to follow-up with Dr. Laurent's office today but there was an issue with her insurance, so she was told to come to the emergency department for pain relief if she thought it warranted it. Patient denies any new or different symptoms, just continued right arm pain. Patient denies any numbness, tingling, or loss of sensation in her fingers. - Related Data Allergies/Adverse Reactions: No Known Allergies Allergy (Verified 09/22/19 10:49) Past Medical History - General Information source: Patient - Social History Smoking Status: Never Smoker Cigarette use (# per day): No Frequency of alcohol use: None Drug Abuse: None Lives with: Family Family History: Reviewed & Not Pertinent Patient has homicidal ideation: No Pulmonary Medical History: Reports: Hx Asthma GI Medical History: Reports: Hx Gastritis, Hx Gastroesophageal Reflux Disease, Hx Ulcer, Hx Endoscopy Musculoskeletal Medical History: Reports Hx Fibromyalgia Psychiatric Medical History: Reports: Hx Anxiety, Hx Bipolar Disorder, Hx Borderline Personality Disorder, Hx Depression Traumatic Medical History: Reports: Hx Fractures - Multiple Past Surgical History: Reports: Hx Appendectomy, Hx Section, Hx Cholecystectomy, Hx Dilation and Curettage, Hx Gastric Bypass Surgery, Hx Hysterectomy, Hx Tonsillectomy - Immunizations Immunizations up to date: Yes Hx Diphtheria, Pertussis, Tetanus Vaccination: Yes - 09/22/2019 Review of Systems - Review of Systems Constitutional: No symptoms reported EENT: No symptoms reported Cardiovascular: No symptoms reported Respiratory: No symptoms reported Gastrointestinal: No symptoms reported Genitourinary: No symptoms reported Female Genitourinary: No symptoms reported Musculoskeletal: See HPI, Joint pain - RUE pain Skin: No symptoms reported Hematologic/Lymphatic: No symptoms reported Neurological/Psychological: No symptoms reported -: Yes All other systems reviewed and negative Physical Exam - Vital signs Vitals: Temp Pulse Resp BP Pulse Ox 98.6 F 86 14 113/74 99 09/27/19 16:53 09/27/19 16:53 09/27/19 16:53 09/27/19 16:53 09/27/19 16:53 Interpretation: Normal - General General appearance: Appears well, Alert In distress: None - Appears uncomfortable - HEENT Head: Normocephalic, Atraumatic Eyes: Normal Pupils: PERRL - Respiratory Respiratory status: No respiratory distress Chest status: Nontender Breath sounds: Normal Chest palpation: Normal - Cardiovascular Rhythm: Regular Heart sounds: Normal auscultation Murmur: No - Abdominal Inspection: Normal Distension: No distension Bowel sounds: Normal Tenderness: Nontender Organomegaly: No organomegaly - Back Back: Normal, Nontender - Extremities General upper extremity: Normal inspection, Tender, Normal color, Normal temperature, Other - Tenderness to palpation over right wrist, right elbow, right shoulder. Able to move fingers. Pulses intact. Sensation motor intact throughout. General lower extremity: Normal inspection, Nontender, Normal color, Normal ROM, Normal temperature, Normal weight bearing. No: George's sign - Neurological Neuro grossly intact: Yes Cognition: Normal Orientation: AAOx4 [place] Coma Scale Eye Opening: Spontaneous [place] Coma Scale Verbal: Oriented [place] Coma Scale Motor: Obeys Commands Naty Coma Scale Total: 15 Speech: Normal Motor strength normal: LUE, RUE, LLE, RLE Sensory: Normal - Psychological Associated symptoms: Normal affect, Normal mood - Skin Skin Temperature: Warm Skin Moisture: Dry Skin Color: Normal Course - Re-evaluation Re-evalutation: 09/27/19 17:30 Spoke to epic professional OrthoDr. Laurent who agrees to come see the patient in the ED. 09/27/19 17:55 Dr. Laurent has seen and evaluated the patient. Dr. Laurent removed the splint and placed her RUE in a sling. Set up follow up appointment in 3 weeks. Patient is agreeable to this plan. Sutures removed from left hand which were placed about a week ago. No dehiscence. Clean dry intact. No infection noted. Full range of motion. - Vital Signs Vital signs: Temp Pulse Resp BP Pulse Ox 98.6 F 86 14 113/74 99 09/27/19 17:00 09/27/19 16:53 09/27/19 16:53 09/27/19 16:53 09/27/19 16:53 - Diagnostic Test Radiology reviewed: Image reviewed, Reports reviewed Procedures - Additional Procedures Suture removal Notes: 09/27/19 21:30 No redness or drainage. 3 sutures removed in total. Well tolerated. No would dehiscence. Discharge - Discharge Clinical Impression: Arm pain, right, Encounter for removal of sutures Radial head fracture Qualifiers: Encounter type: subsequent encounter Fracture type: closed Fracture alignment: displaced Laterality: right Fracture healing: with routine healing Qualified Code(s): S52.121D - Displaced fracture of head of right radius, subsequent encounter for closed fracture with routine healing Condition: Stable Disposition: HOME, SELF-CARE Instructions: Radial Head Fracture ([facility]), Suture Removal Prescriptions: Oxycodone HCl/Acetaminophen [Percocet 5-325 mg Tablet] 1 tab PO BIDP PRN #10 tablet PRN Reason: Referrals: ANOOP ESTRADA MD [ACTIVE STAFF] - Follow up as needed ZACKARY LAURENT JR, [ACTIVE PROVISIONAL STAFF] - 10/16/19 I personally performed the services described in the documentation, reviewed and edited the documentation which was dictated to the scribe in my presence, and it accurately records my words and actions.
== END 2019-09-27 19:41 | disposition home or self-care (01) ==
LOC: ER 16:48
DX: S61.412D Laceration without foreign body of left hand, subsequent encounter (principal); S52.121D Displaced fracture of head of right radius, subsequent encounter for closed fracture with routine healing; M79.601 Pain in right arm; W19.XXXD Unspecified fall, subsequent encounter
CPT/HCPCS: 99281

== ENCOUNTER 2019-11-03 15:45 | Emergency (ER) | payer MEDICARE, MEDICAID ==
[2019-11-03 16:03] VITALS: BP 118/79
--- NOTE | 2019-11-03 16:16 | ER Document Report ---
ED Extremity Problem, Upper - General Chief Complaint: Arm Pain Stated Complaint: RIGHT ARM PAIN Time Seen by Provider: 11/03/19 16:06 Primary Care Provider: ISA ESTRADA MD [Primary Care Provider] - Follow up as needed ZACKARY ZENDEJAS JR, DO [ACTIVE PROVISIONAL STAFF] - Follow up as needed Mode of Arrival: Ambulatory Notes: 53-year-old female presented to ED for follow-up from her radial head fracture from 09/26/2019. She was seen in the emergency room on 09 25 and and called the radiologist office the next day and she states that the office told her she could not be seen so she came to the emergency room she did see Dr. Zendejas in the emergency room he told her to follow-up in 3 weeks. She states she called the office again they told her that she could not follow-up with him that she had to come back to the emergency room so she has come back today to get reexamined. I have told patient that she needs to call his office tomorrow tell him them that she is Dr. Zendejas himself told her to follow-up in 3 weeks and that she needs to be followed up. We will get x-ray today for him to use his comparison. - HPI Patient complains to provider of: Right, Elbow Onset: Other - 09/26/2019 Recent injury: Yes Quality of pain: Achy Severity of pain: Mild Pain Level: 1 Associated symptoms: Other - Fracture on 09/26/2019 Exacerbated by: Movement Relieved by: Nothing Similar symptoms previously: Yes Recently seen / treated by doctor: Yes - Related Data Allergies/Adverse Reactions: No Known Allergies Allergy (Verified 11/03/19 16:06) Past Medical History - General Information source: Patient - Social History Smoking Status: Never Smoker Chew tobacco use (# tins/day): No Frequency of alcohol use: None Drug Abuse: None Family History: Reviewed & Not Pertinent Patient has homicidal ideation: No - Past Medical History Cardiac Medical History: Reports: None Pulmonary Medical History: Reports: Hx Asthma EENT Medical History: Reports: None Neurological Medical History: Reports: None Endocrine Medical History: Reports: None Renal/ Medical History: Reports: None Malignancy Medical History: Reports: None GI Medical History: Reports: Hx Gastritis, Hx Gastroesophageal Reflux Disease, Hx Ulcer, Hx Endoscopy Musculoskeletal Medical History: Reports Hx Fibromyalgia, Reports Hx Musculoskeletal Deformity, Reports Hx Musculoskeletal Trauma Psychiatric Medical History: Reports: Hx Anxiety, Hx Bipolar Disorder, Hx Borderline Personality Disorder, Hx Depression Traumatic Medical History: Reports: Hx Fractures - Multiple Infectious Medical History: Reports: None Past Surgical History: Reports: Hx Appendectomy, Hx Section, Hx Cholecystectomy, Hx Dilation and Curettage, Hx Gastric Bypass Surgery, Hx Hysterectomy, Hx Tonsillectomy - Immunizations Immunizations up to date: Yes Hx Diphtheria, Pertussis, Tetanus Vaccination: Yes - 09/22/2019 Review of Systems - Review of Systems Constitutional: No symptoms reported EENT: No symptoms reported Cardiovascular: No symptoms reported Respiratory: No symptoms reported Gastrointestinal: No symptoms reported Genitourinary: No symptoms reported Female Genitourinary: No symptoms reported Musculoskeletal: Other - Right elbow pain Skin: No symptoms reported Hematologic/Lymphatic: No symptoms reported Neurological/Psychological: No symptoms reported -: Yes All other systems reviewed and negative Physical Exam - Vital signs Vitals: Temp Pulse Resp BP Pulse Ox 98.3 F 83 16 118/79 97 11/03/19 16:00 11/03/19 16:00 11/03/19 16:00 11/03/19 16:00 11/03/19 16:00 Interpretation: Normal - General General appearance: Appears well, Alert - HEENT Head: Normocephalic, Atraumatic Eyes: Normal Pupils: PERRL - Respiratory Respiratory status: No respiratory distress Chest status: Nontender Breath sounds: Normal Chest palpation: Normal - Cardiovascular Rhythm: Regular Heart sounds: Normal auscultation Murmur: No - Abdominal Inspection: Normal Distension: No distension Bowel sounds: Normal Tenderness: Nontender Organomegaly: No organomegaly - Back Back: Normal, Nontender - Extremities General upper extremity: Normal inspection, Normal color, Normal ROM, Normal temperature General lower extremity: Normal inspection, Nontender, Normal color, Normal ROM, Normal temperature, Normal weight bearing. No: George's sign Elbow: Tender Forearm: Tender - Neurological Neuro grossly intact: Yes Cognition: Normal Orientation: AAOx4 [place] Coma Scale Eye Opening: Spontaneous [place] Coma Scale Verbal: Oriented [place] Coma Scale Motor: Obeys Commands [place] Coma Scale Total: 15 Speech: Normal Motor strength normal: LUE, RUE, LLE, RLE Sensory: Normal - Psychological Associated symptoms: Normal affect, Normal mood - Skin Skin Temperature: Warm Skin Moisture: Dry Skin Color: Normal Course - Re-evaluation Re-evalutation: 11/03/19 22:26 X-ray report was discussed with patient and written report of the x-ray given to patient. Patient was instructed to follow-up with Dr. Zendejas as she had been instructed before. She stated that she called the office and they told her she could not follow-up. I did read Dr. Zendejas's note and he stated he wanted her to follow-up. I told her to call the office again tomorrow and tell them that he instructed her to follow-up. - Vital Signs Vital signs: Temp Pulse Resp BP Pulse Ox 98.3 F 83 16 118/79 97 11/03/19 16:06 11/03/19 16:00 11/03/19 16:00 11/03/19 16:00 11/03/19 16:00 - Diagnostic Test Radiology reviewed: Image reviewed, Reports reviewed Discharge - Discharge Clinical Impression: Radial head fracture Qualifiers: Encounter type: subsequent encounter Fracture type: closed Fracture alignment: nondisplaced Laterality: right Fracture healing: with routine healing Qualified Code(s): S52.124D - Nondisplaced fracture of head of right radius, subsequent encounter for closed fracture with routine healing Condition: Stable Disposition: HOME, SELF-CARE Additional Instructions: Your fracture to the right elbow is healing As I have instructed please follow-up with your docket specialist as he instructed you. If the office states they cannot see you tell them that he instructed you to follow-up with him and that you need to follow-up with him. The x-ray has been completed as we discussed and this x-ray will be available to him tomorrow when you call the office. FOLLOW-UP CARE: If you have been referred to a physician for follow-up care, call the physicians office for an appointment as you were instructed or within the next two days. If you experience worsening or a significant change in your symptoms, notify the physician immediately or return to the Emergency Department at any time for re-evaluation. Referrals: ISA ESTRADA MD [Primary Care Provider] - Follow up as needed ZACKARY ZENDEJAS JR, DO [ACTIVE PROVISIONAL STAFF] - Follow up as needed
--- NOTE | 2019-11-03 17:01 | RADIOLOGY REPORT (SQ) ---
EXAM DESCRIPTION: ELBOW RIGHT OVER 2 VIEWS IMAGES COMPLETED DATE/TIME: 11/03/2019 3:34 pm REASON FOR STUDY: fractured on 09/26/19. COMPARISON: Right forearm radiograph, 09/26/2019. NUMBER OF VIEWS: Four views. TECHNIQUE: AP, lateral, and both oblique radiographic images acquired of the right elbow. LIMITATIONS: None. FINDINGS: MINERALIZATION: Normal. BONES: Healing sclerosis at the proximal radial neck fracture. No significant angulation or displace ment. No new fracture. Normal elbow joint alignment. JOINT: No elbow joint effusion. SOFT TISSUES: No soft tissue swelling. No foreign body. OTHER: No other significant finding. IMPRESSION: Healing impacted fracture of the radial neck. No displacement or angulation. TECHNICAL DOCUMENTATION: JOB ID: [id number] 2010 [employer]- All Rights Reserved Reading location - IP/workstation name: [email or web address]
== END 2019-11-03 17:17 | disposition home or self-care (01) ==
LOC: ER 15:45
DX: S52.124D Nondisplaced fracture of head of right radius, subsequent encounter for closed fracture with routine healing (principal); X58.XXXD Exposure to other specified factors, subsequent encounter; J45.909 Unspecified asthma, uncomplicated
CPT/HCPCS: 99283

== ENCOUNTER 2020-01-10 00:11 | Emergency (ER) | payer MEDICARE, MEDICAID ==
--- NOTE | 2020-01-10 00:34 | ER Document Report ---
ED Medical Screen (RME) - General Stated Complaint: IVC Time Seen by Provider: 01/10/20 00:25 Primary Care Provider: ISA ESTRADA MD [Primary Care Provider] - Follow up as needed Mode of Arrival: Wheelchair Information source: Law Enforcement Notes: 54-year-old female patient presented to the emergency department on IVC petition via [facility]. Patient apparently lives by herself, there is concerned that she has taken too much of her medication, was concerned that she is abusing her medication, tonight when these concerns were brought to her attention she tried to escape in her vehicle and appeared to be under the influence of some type of substance. She was then placed on IVC petition by [facility]. She is calm, cooperative, slightly drowsy, denies suicidal ideations. Reports passive homicidal thoughts about her ex- but has no plan. I have greeted and performed a rapid initial assessment of this patient. A comprehensive ED assessment and evaluation of the patient, analysis of test results and completion of the medical decision making process will be conducted by additional ED providers. I have specifically instructed the patient or family members with the patient to immediately return to any nursing staff should anything change in the patient's condition or with their chief complaint. - Related Data Allergies/Adverse Reactions: No Known Allergies Allergy (Verified 11/03/19 16:06) Past Medical History Pulmonary Medical History: Reports: Hx Asthma GI Medical History: Reports: Hx Gastritis, Hx Gastroesophageal Reflux Disease, Hx Ulcer, Hx Endoscopy Musculoskeltal Medical History: Reports Hx Fibromyalgia, Reports Hx Musculoskeletal Deformity, Reports Hx Musculoskeletal Trauma Psychiatric Medical History: Reports: Hx Anxiety, Hx Bipolar Disorder, Hx Borderline Personality Disorder, Hx Depression Traumatic Medical History: Reports: Hx Fractures - Multiple Past Surgical History: Reports: Hx Appendectomy, Hx Section, Hx Cholecystectomy, Hx Dilation and Curettage, Hx Gastric Bypass Surgery, Hx Hysterectomy, Hx Tonsillectomy - Immunizations Immunizations up to date: Yes Hx Diphtheria, Pertussis, Tetanus Vaccination: Yes - 09/22/2019 Physical Exam - Vital signs Vitals: Temp Pulse Resp BP Pulse Ox 97.3 F 76 12 127/69 H 98 01/10/20 00:19 01/10/20 00:19 01/10/20 00:19 01/10/20 00:19 01/10/20 00:19 Course - Vital Signs Vital signs: Temp Pulse Resp BP Pulse Ox 97.3 F 76 12 127/69 H 98 01/10/20 00:19 01/10/20 00:19 01/10/20 00:19 01/10/20 00:19 01/10/20 00:19 Doctor's Discharge - Discharge Referrals: ISA ESTRADA MD [Primary Care Provider] - Follow up as needed
[2020-01-10 01:30] LABS: ABSOLUTE EOSINOPHILS # (AUTO) 0.7 10^3/uL (0.0-0.6); ABSOLUTE LYMPHOCYTES (AUTO) 2.4 10^3/uL (0.5-4.7); ABSOLUTE MONOCYTES (AUTO) 0.4 10^3/uL (0.1-1.4); ABSOLUTE NEUT (AUTO) 2.2 10^3/uL (1.7-8.2); BASOPHILS % (AUTO) 0.7 % (0-2); EOSINOPHILS % (AUTO) 12.5 % (0-6); HEMATOCRIT 33.7 % (36.0-47.0); HEMOGLOBIN 11.3 g/dL (12.0-15.5); LYMPHOCYTES % (AUTO) 41.4 % (13-45); MEAN CORPUSCULAR HGB CONC 33.6 g/dL (32.0-36.0); MEAN CORPUSCULAR VOLUME 89 fl (80-97); MONOCYTES % (AUTO) 7.2 % (3-13); PLATELET COUNT 202 10^3/uL (150-450); RED BLOOD COUNT 3.78 10^6/uL (3.72-5.28); RED CELL DISTRIBUTION WIDTH 16.6 % (11.5-14.0); SEGMENTED NEUTROPHILS % (AUTO) 38.2 % (42-78); TOTAL CELLS COUNTED % (AUTO) 100 %; WHITE BLOOD COUNT 5.8 10^3/uL (4.0-10.5)
[2020-01-10 01:39] LABS: ALBUMIN 3.8 g/dL (3.5-5.0); ALKALINE PHOSPHATASE 61 U/L (38-126); ANION GAP 7 (5-19); ASPARTATE AMINO TRANSFERASE 16 U/L (14-36); BILIRUBIN,TOTAL 0.2 mg/dL (0.2-1.3); BLOOD UREA NITROGEN 13 mg/dL (7-20); CALCIUM 8.8 mg/dL (8.4-10.2); CARBON DIOXIDE 25 mmol/L (22-30); CHLORIDE 108 mmol/L (98-107); GLUCOSE 96 mg/dL (75-110); POTASSIUM 4.6 mmol/L (3.6-5.0); TOTAL PROTEIN 6.8 g/dL (6.3-8.2)
[2020-01-10 01:40] LABS: ACETAMINOPHEN < 10 ug/mL (10-30); ALCOHOL < 10 mg/dL (NONE DETECTED); SALICYLATE < 1.0 mg/dL (2.0-20.0)
[2020-01-10] MEDS ORDERED: NORMAL SALINE 1000 ML 1,000 ML IV ONE (01:50)
--- NOTE | 2020-01-10 02:10 | ER Document Report ---
Entered by JOHNY HAMMER SCRIBE 01/10/20 0149 Acting as scribe for:ALONZO WILKINSON DO ED General - General Chief Complaint: Psych Problem Stated Complaint: IVC Time Seen by Provider: 01/10/20 00:25 Primary Care Provider: ISA ESTRADA MD [Primary Care Provider] - Follow up as needed Mode of Arrival: Wheelchair Information source: Emergency Med Personnel Notes: This 54 year old female patient presents to the ED on IVC papers placed by [facility] earlier [facility]. Per IVC paperwork, there is concern that the patient may have been abusing her medications (Depakote, Phenergan, Ambien, Zantac). Paperwork further reports that she attempted to drive her vehicle while altered. History is otherwise unobtainable. - Related Data Allergies/Adverse Reactions: No Known Allergies Allergy (Verified 11/03/19 16:06) Home Medications: depakote,phenergan, zantac, ambien Past Medical History - General Information source: Law Enforcement, [facility] - Social History Smoking Status: Never Smoker Smoking Education Provided: No Family History: Reviewed & Not Pertinent Patient has homicidal ideation: No Pulmonary Medical History: Reports: Hx Asthma GI Medical History: Reports: Hx Gastritis, Hx Gastroesophageal Reflux Disease, Hx Ulcer, Hx Endoscopy Musculoskeletal Medical History: Reports Hx Fibromyalgia, Reports Hx Musculoskeletal Deformity, Reports Hx Musculoskeletal Trauma Psychiatric Medical History: Reports: Hx Anxiety, Hx Bipolar Disorder, Hx Borderline Personality Disorder, Hx Depression Traumatic Medical History: Reports: Hx Fractures - Multiple Past Surgical History: Reports: Hx Appendectomy, Hx Section, Hx Ch olecystectomy, Hx Dilation and Curettage, Hx Gastric Bypass Surgery, Hx Hysterectomy, Hx Tonsillectomy - Immunizations Immunizations up to date: Yes Hx Diphtheria, Pertussis, Tetanus Vaccination: Yes - 09/22/2019 Review of Systems - Review of Systems -: Yes ROS unobtainable due to patient's medical condition Physical Exam - Vital signs Vitals: Temp Pulse Resp BP Pulse Ox 97.3 F 76 12 127/69 H 98 01/10/20 00:19 01/10/20 00:19 01/10/20 00:19 01/10/20 00:19 01/10/20 00:19 - General General appearance: Other - Sleepy, slow to respond In distress: None - HEENT Head: Normocephalic, Atraumatic Eyes: Normal Pupils: No: PERRL - 6-7 mm and sluggish - Respiratory Respiratory status: No respiratory distress Chest status: Nontender Breath sounds: Normal Chest palpation: Normal - Cardiovascular Rhythm: Regular Heart sounds: Normal auscultation Murmur: No Friction rub: No Gallop: None auscultated - Abdominal Inspection: Normal Distension: No distension Bowel sounds: Normal Tenderness: Nontender - Abdomen soft Organomegaly: No organomegaly - Back Back: Normal, Nontender - Extremities General upper extremity: Normal inspection General lower extremity: Normal inspection. No: Edema - Neurological Neuro grossly intact: Yes - Psychological Associated symptoms: Other - Unable to assess - Skin Skin Temperature: Warm Skin Moisture: Dry Skin Color: Normal Course - Re-evaluation Re-evalutation: 01/10/20 06:00 MDM 54 year old female arrives after altered level of consciousness and placed on IVC papers by [facility]. She has ambulated to rest room here without assistance. Ammonia elevated likely due to valproic acid overdose. Have administered Levocaritine per rec from [facility] and she is receiving IVF. Over to Dr. Logan at 0600. - Vital Signs Vital signs: Temp Pulse Resp BP Pulse Ox 97.4 F 61 16 147/91 H 94 01/10/20 05:27 01/10/20 05:27 01/10/20 05:27 01/10/20 05:27 01/10/20 05:27 - Laboratory Result Diagrams: 01/10/20 01:15 01/10/20 01:15 Laboratory results interpreted by me: 01/10/20 01/10/20 01/10/20 01:15 01:15 01:15 Hgb 11.3 L Hct 33.7 L RDW 16.6 H Eos % (Auto) 12.5 H Absolute Eos (auto) 0.7 H Seg Neutrophils % 38.2 L Chloride 108 H Ammonia Urine Glucose (UA) Urine Nitrite Ur Leukocyte Esterase Salicylates < 1.0 L Acetaminophen < 10 L Valproic Acid 129.5 H* 01/10/20 01/10/20 02:20 03:24 Hgb Hct RDW Eos % (Auto) Absolute Eos (auto) Seg Neutrophils % Chloride Ammonia 142.5 H Urine Glucose (UA) >=500 H Urine Nitrite POSITIVE H Ur Leukocyte Esterase LARGE H Salicylates Acetaminophen Valproic Acid - EKG Interpretation by Me EKG shows normal: Sinus rhythm Rate: Normal Rhythm: NSR - NSR NL Remlap [address] elevation or depression repolarization abnormality my interpretation. Discharge - Discharge Clinical Impression: Overdose Qualifiers: Encounter type: initial encounter Injury intent: undetermined intent Qualified Code(s): T50.904A - Poisoning by unspecified drugs, medicaments and biological substances, undetermined, initial encounter UTI (urinary tract infection) Qualifiers: Urinary tract infection type: site unspecified Hematuria presence: with hematuria Qualified Code(s): N39.0 - Urinary tract infection, site not specified; R31.9 - Hematuria, unspecified Condition: Stable Disposition: PSYCH HOSP/UNIT Referrals: ISA ESTRADA MD [Primary Care Provider] - Follow up as needed I personally performed the services described in the documentation, reviewed and edited the documentation which was dictated to the scribe in my presence, and it accurately records my words and actions.
[2020-01-10 03:04] LABS: URINE AMPHETAMINES SCREEN NEGATIVE; URINE BARBITURATES SCREEN NEGATIVE; URINE BENZODIAZEPINES SCREEN UNCONFIRMED POSITIVE; URINE COCAINE SCREEN NEGATIVE; URINE MARIJUANA (THC) SCREEN NEGATIVE; URINE METHADONE SCREEN NEGATIVE; URINE PHENCYCLIDINE SCREEN NEGATIVE
[2020-01-10 03:06] LABS: APPEARANCE,URINE SLIGHTLY-CLOUDY; BILIRUBIN,URINE NEGATIVE (NEGATIVE); COLOR,URINE YELLOW; GLUCOSE, URINE >=500 mg/dL (NEGATIVE); KETONES,URINE NEGATIVE (NEGATIVE); LEUKOCYTE ESTERASE,URINE LARGE (NEGATIVE); NITRITE,URINE POSITIVE (NEGATIVE); PROTEIN,URINE NEGATIVE (NEGATIVE); URINE SPECIFIC GRAVITY 1.018; UROBILINOGEN,URINE NEGATIVE mg/dL (<2.0)
[2020-01-10] MEDS ORDERED: LEVOCARNITINE INJ/PF 1000 MG/5 ML SDV IV STA (04:59)
[2020-01-10] MEDS ORDERED: LEVOCARNITINE INJ/PF 1000 MG/5 ML SDV IV ONE ×2 (05:30→07:58)
[2020-01-10] MEDS ORDERED: CEFTRIAXONE 1 GM/D5W RTU 1 GM/50 ML RTUPB IV ONE (05:42)
[2020-01-10] MEDS ORDERED: NORMAL SALINE IV ONE (09:00)
[2020-01-10] MEDS ORDERED: LEVOCARNITINE IV ONE (09:00)
--- NOTE | 2020-01-10 10:09 | EKG REPORT ---
SEVERITY:- NORMAL ECG - SINUS RHYTHM : Confirmed by: Tiffayn Cooper 10-Jan-2020 10:08:48
[2020-01-10] MEDS: ONDANSETRON HCL INJ/PF 4 MG/2 ML SDV IV ONE ×2 (15:45→15:48)
[2020-01-10] MEDS ORDERED: ONDANSETRON 4 MG TAB.RAPDIS PO ONE (15:52)
[2020-01-10 19:15] VITALS: BP 126/66
== END 2020-01-10 19:15 | disposition home or self-care (01) ==
LOC: ER 00:11
DX: Z04.6 Encounter for general psychiatric examination, requested by authority (principal); T50.904A Poisoning by unspecified drugs, medicaments and biological substances, undetermined, initial encounter; R79.89 Other specified abnormal findings of blood chemistry; T50.905A Adverse effect of unspecified drugs, medicaments and biological substances, initial encounter; N39.0 Urinary tract infection, site not specified; R31.9 Hematuria, unspecified; F41.9 Anxiety disorder, unspecified; F31.9 Bipolar disorder, unspecified; J45.909 Unspecified asthma, uncomplicated; K21.9 Gastro-esophageal reflux disease without esophagitis; Z79.899 Other long term (current) drug therapy
CPT/HCPCS: 93005; 99284; 96361; 96365; 96367; 36415; 87040; 80307 ×4; 82140; 84443; 85025; 80053; 81001; 80164; 93010; A9270; J7030; J0696; J1955; J2405

== ENCOUNTER 2020-05-21 22:26 | Emergency (ER) | payer MEDICARE, MEDICAID ==
--- NOTE | 2020-05-21 22:59 | ER Document Report ---
ED General - General Chief Complaint: Fall Stated Complaint: FALL/BODY PAIN Time Seen by Provider: 05/21/20 22:40 Primary Care Provider: ISA ESTRADA MD [Primary Care Provider] - Follow up as needed Mode of Arrival: Ambulatory Notes: Patient presents to the ER for evaluation of left ankle pain, bilateral knee pain, low back pain following a fall that occurred at home. The patient states she took her nighttime meds and then got out of bed to cook food for her mother. She states she thought she had time before her meds affected her. She states the medications took effect before she can get back in bed and she became very weak. She states she fell to the ground. The exact details of the fall are somewhat hazy according to the patient. She denies fever. She denies cough or congestion. Nursing notes reviewed and past medical, social, and family histories reviewed and validated. TRAVEL OUTSIDE OF THE [place] IN LAST 30 DAYS: No - Related Data Allergies/Adverse Reactions: No Known Allergies Allergy (Verified 11/03/19 16:06) Home Medications: ambien seroquel depokate clonazopem buspirone omeprazole Past Medical History - General Information source: Patient - Social History Smoking Status: Never Smoker Chew tobacco use (# tins/day): No Smoking Education Provided: No Frequency of alcohol use: None Drug Abuse: None Lives with: Family Family History: Reviewed & Not Pertinent Patient has suicidal ideation: No Patient has homicidal ideation: No - Past Medical History Cardiac Medical History: Reports: None Pulmonary Medical History: Reports: Hx Asthma EENT Medical History: Reports: None Neurological Medical History: Reports: None Endocrine Medical History: Reports: None Renal/ Medical History: Reports: None Malignancy Medical History: Reports: None GI Medical History: Reports: Hx Gastritis, Hx Gastroesophageal Reflux Disease, Hx Ulcer, Hx Endoscopy Musculoskeletal Medical History: Reports Hx Fibromyalgia, 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, Reports Hx Musculoskeletal Trauma Skin Medical History: Reports None Psychiatric Medical History: Reports: Hx Anxiety, Hx Bipolar Disorder, Hx Borderline Personality Disorder, Hx Depression Traumatic Medical History: Reports: Hx Fractures - Multiple Infectious Medical History: Reports: None Past Surgical History: Reports: Hx Appendectomy, Hx Section, Hx Cholecystectomy, Hx Dilation and Curettage, Hx Gastric Bypass Surgery, Hx Hysterectomy, Hx Tonsillectomy - Immunizations Immunizations up to date: Yes Hx Diphtheria, Pertussis, Tetanus Vaccination: Yes - 09/22/2019 Review of Systems - Review of Systems Notes: Constitutional: Negative for fever. HENT: Negative for sore throat. Eyes: Negative for visual changes. Cardiovascular: Negative for chest pain. Respiratory: Negative for shortness of breath. Gastrointestinal: Negative for abdominal pain, vomiting or diarrhea. Genitourinary: Negative for dysuria. Musculoskeletal: Positive for low back pain. Positive for bilateral knee pain. Positive for left ankle pain. Skin: Negative for rash. Neurological: Negative for headaches, weakness or numbness. 10 point ROS negative except as marked above and in HPI. Physical Exam - Vital signs Vitals: Temp 99 F 05/21/20 22:38 - Notes Notes: CONSTITUTIONAL: Patient is extremely drowsy but easily arousable. SKIN: Warm, dry, and intact without rash EYES: Extraocular movements are grossly intact, clear conjunctiva HENT: Normocephalic, atraumatic, moist mucus membranes NECK: No obvious swelling, normal range of motion PULMONARY: Normal chest rise and fall. Breath sounds clear and equal bilaterally. No respiratory distress or stridor CARDIOVASCULAR: Regular rate. No murmurs, rubs, gallops. Distal extremities are warm and well perfused. ABDOMINAL: Soft, nontender NEUROLOGIC: slow speech, moves all extremities. Cranial nerves are within normal limits. Vice President [employer] strength strong and equal in the upper extremities bilaterally. MUSCULOSKELETAL: No gross deformities. Mild tenderness palpation of the anterior aspect of bilateral knees. There is also mild tenderness to the lateral aspect of the left ankle. Tenderness to palpation of the paravertebral lumbar muscles noted. No spinal tenderness noted. PSYCHIATRIC: Normal mood and affect Course - Re-evaluation Re-evalutation: 05/22/20 00:48 Rechecked patient. Discussed with patient: results, diagnosis, treatment plan, and need for follow-up. Return to the emergency department warnings were given. All questions and concerns were addressed. The plan is agreed with and understood. Patient is stable and ready for discharge. - Vital Signs Vital signs: Temp Pulse Resp BP Pulse Ox 99 F 05/21/20 22:38 - Laboratory Results Critical Laboratory Results Reviewed: No Critical Results - Radiology Results Critical Radiology Results Reviewed: No Critical Results Discharge - Discharge Clinical Impression: bilateral knee contusions, Use of sleep medications Left ankle sprain Qualifiers: Encounter type: initial encounter Involved ligament of ankle: unspecified ligament Qualified Code(s): S93.402A - Sprain of unspecified ligament of left ankle, initial encounter Low back pain Qualifiers: Chronicity: acute Back pain laterality: bilateral Sciatica presence: without sciatica Qualified Code(s): M54.5 - Low back pain Condition: Stable Disposition: HOME, SELF-CARE Instructions: Contusion (OM) Referrals: ISA ESTRADA MD [Primary Care Provider] - Follow up as needed
--- NOTE | 2020-05-21 23:39 | RADIOLOGY REPORT (SQ) ---
EXAM: ANKLE LEFT COMPLETE CLINICAL INDICATION: 54-year-old female status post fall. TECHNIQUE: Three views LEFT ankle were obtained in AP, lateral and oblique projections. COMPARISON: None. FINDINGS: There is no fracture or dislocation. The joint spaces are preserved. No soft tissue abnormalities are seen. IMPRESSION: No acute radiographic abnormality.
--- NOTE | 2020-05-21 23:42 | RADIOLOGY REPORT (SQ) ---
EXAM DESCRIPTION: L SPINE WHOLE, five views CLINICAL HISTORY: 54 years Female, fall COMPARISON: None. FINDINGS: Scattered vascular clips are present in the abdomen and pelvis. Sacrum and SI joints appear intact. Five nonrib-bearing lumbar vertebral bodies are noted. There is disc height narrowing at L5-S1. No acute fracture of the lumbar spine. There is minimal endplate spondylosis prominently at L5-S1. Oblique views demonstrate facet arthropathy at L4-5. No lysis. IMPRESSION: Subtle degenerative change in the lower lumbar spine. No fracture.
--- NOTE | 2020-05-21 23:43 | RADIOLOGY REPORT (SQ) ---
EXAM DESCRIPTION: KNEE BILATERAL 2 VIEWS CLINICAL HISTORY: 54 years Female, fall COMPARISON: None. FINDINGS: Right: There is prepatellar soft tissue swelling and edema. Alignment the knee is anatomic. No fracture. No effusion. No erosions or periostitis. Left: Alignment is anatomic. There is prepatellar soft tissue swelling. No fracture. No effusion. No significant degenerative change. IMPRESSION: Swelling of the soft tissues anterior to the patella bilaterally. No fracture bilaterally.
--- NOTE | 2020-05-21 23:58 | RADIOLOGY REPORT (SQ) ---
EXAM: CT HEAD WITHOUT CLINICAL INDICATION: 54-year-old female status post fall. COMPARISON: 06/24/2019. TECHNIQUE: CT brain without contrast. This exam was performed according to our departmental dose optimization program which includes use of automated exposure control, adjustment of the mA and/or kV according to patient size and/or use of iterative reconstruction technique. FINDINGS: The ventricles, sulci, and cisterns are within normal limits. The roth-white matter differentiation is preserved. Empty sella otherwise the midline structures are within normal limits. There is no mass effect, midline shift, intra- or extra-axial fluid collection/acute hemorrhage. The osseous structures are unremarkable. The paranasal sinuses and mastoid air cells are clear. IMPRESSION: No acute intracranial abnormalities.
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
[2020-05-22 15:12] VITALS: BP 114/64
== END 2020-05-22 15:11 | disposition home or self-care (01) ==
LOC: ER 22:26
DX: S80.02XA Contusion of left knee, initial encounter (principal); S80.01XA Contusion of right knee, initial encounter; S93.402A Sprain of unspecified ligament of left ankle, initial encounter; M54.5 Low back pain; W19.XXXA Unspecified fall, initial encounter; Y93.G3 Activity, cooking and baking; Y92.009 Unspecified place in unspecified non-institutional (private) residence as the place of occurrence of the external cause; M47.816 Spondylosis without myelopathy or radiculopathy, lumbar region; R53.1 Weakness; R40.0 Somnolence; J45.909 Unspecified asthma, uncomplicated; K21.9 Gastro-esophageal reflux disease without esophagitis; F31.9 Bipolar disorder, unspecified; F41.9 Anxiety disorder, unspecified; Z79.899 Other long term (current) drug therapy
CPT/HCPCS: 70450; 72110; 99284

== ENCOUNTER 2020-05-26 22:03 | Emergency (ER) | payer MEDICARE, MEDICAID ==
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
[2020-05-26 23:57] LABS: ALBUMIN 2.6 g/dL (3.5-5.0); ALKALINE PHOSPHATASE 65 U/L (38-126); ASPARTATE AMINO TRANSFERASE 21 U/L (14-36); BILIRUBIN,DIRECT 0.3 mg/dL (0.0-0.4); BILIRUBIN,TOTAL 0.3 mg/dL (0.2-1.3); BLOOD UREA NITROGEN 16 mg/dL (7-20); CALCIUM 7.6 mg/dL (8.4-10.2); CARBON DIOXIDE 29 mmol/L (22-30); GLUCOSE 71 mg/dL (75-110); POTASSIUM 4.3 mmol/L (3.6-5.0); TOTAL PROTEIN 5.2 g/dL (6.3-8.2)
[2020-05-26 23:58] LABS: HEMATOCRIT 27.5 % (36.0-47.0); HEMOGLOBIN 9.1 g/dL (12.0-15.5); MEAN CORPUSCULAR HEMOGLOBIN 30.7 pg (27.0-33.4); MEAN CORPUSCULAR VOLUME 93 fl (80-97); PLATELET COUNT 252 10^3/uL (150-450); RED BLOOD COUNT 2.96 10^6/uL (3.72-5.28); RED CELL DISTRIBUTION WIDTH 14.3 % (11.5-14.0); WHITE BLOOD COUNT 8.4 10^3/uL (4.0-10.5)
[2020-05-26 23:59] LABS: ACETAMINOPHEN < 10 ug/mL (10-30); ALCOHOL < 10 mg/dL (NONE DETECTED); SALICYLATE < 1.0 mg/dL (2.0-20.0)
[2020-05-27 00:02] LABS: CHLORIDE 107 mmol/L (98-107)
[2020-05-27 00:04] LABS: ANION GAP 3 (5-19)
[2020-05-27 00:16] LABS: APPEARANCE,URINE CLEAR; BILIRUBIN,URINE NEGATIVE (NEGATIVE); COLOR,URINE YELLOW; GLUCOSE, URINE NEGATIVE (NEGATIVE); KETONES,URINE TRACE mg/dL (NEGATIVE); LEUKOCYTE ESTERASE,URINE NEGATIVE (NEGATIVE); NITRITE,URINE NEGATIVE (NEGATIVE); PROTEIN,URINE NEGATIVE (NEGATIVE); URINE SPECIFIC GRAVITY 1.015; UROBILINOGEN,URINE NEGATIVE mg/dL (<2.0)
[2020-05-27 00:20] LABS: ABSOLUTE LYMPHOCYTES# (MANUAL) 1.9 10^3/uL (0.5-4.7); ABSOLUTE MONOCYTES # (MANUAL) 0.5 10^3/uL (0.1-1.4); BAND NEUTROPHILS % (MANUAL) 2 % (3-5); BASOPHILS % (MANUAL) 0 % (0-2); EOSINOPHILS % (MANUAL) 6 % (0-6); LYMPHOCYTES % (MANUAL) 23 % (13-45); MONOCYTES % (MANUAL) 6 % (3-13); SEGMENTED NEUTROPHILS % (MAN) 63 % (42-78); TOTAL CELLS COUNTED 100
[2020-05-27 00:21] LABS: PLATELET COMMENT ADEQUATE; RBC MORPHOLOGY COMMENT NORMO-CYTIC/CHROMIC
[2020-05-27 00:24] LABS: URINE AMPHETAMINES SCREEN NEGATIVE; URINE BARBITURATES SCREEN NEGATIVE; URINE BENZODIAZEPINES SCREEN NEGATIVE; URINE COCAINE SCREEN NEGATIVE; URINE MARIJUANA (THC) SCREEN NEGATIVE; URINE METHADONE SCREEN NEGATIVE; URINE PHENCYCLIDINE SCREEN NEGATIVE
[2020-05-27] MEDS ORDERED: ACETAMINOPHEN 325 MG TABLET PO ONE (12:53)
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
[2020-05-27 15:52] VITALS: BP 135/72
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
== END 2020-05-27 15:51 | disposition home or self-care (01) ==
LOC: ER 22:03
DX: Z04.6 Encounter for general psychiatric examination, requested by authority (principal); F55.8 Abuse of other non-psychoactive substances; R40.0 Somnolence; S30.1XXA Contusion of abdominal wall, initial encounter; S80.02XA Contusion of left knee, initial encounter; W19.XXXA Unspecified fall, initial encounter; J45.909 Unspecified asthma, uncomplicated; F41.9 Anxiety disorder, unspecified; F31.9 Bipolar disorder, unspecified; Z63.8 Other specified problems related to primary support group; Z79.899 Other long term (current) drug therapy
CPT/HCPCS: 99284; 36415; 80307 ×4; 85025; 80053; 81001; A9270